=== PATIENT | female | born 1990 | race Hispanic/Latino ===

== ENCOUNTER 2024-07-03 11:57 | Outpatient (CLI) | payer BC | END 2024-07-03 11:58 | disposition home or self-care (01) | LOC: CSHRAD 11:57 | PROVIDERS: ATTEND Internal Medicine Rheumatology | DX: M54.50 Low back pain, unspecified (principal); R79.9 Abnormal finding of blood chemistry, unspecified; M47.816 Spondylosis without myelopathy or radiculopathy, lumbar region | CPT/HCPCS: 72100 ==